=== PATIENT | male | born 1935 | race Two or more races ===

== ENCOUNTER 2018-06-20 17:50 | Emergency (ER) | payer OTHER ==
[~2018-06-20] VITALS: Ht 162.6 cm; Wt 88.0 kg
[2018-06-20] MEDS ORDERED: FORTAMET500 MG (19:04)
[2018-06-20] MEDS ORDERED: NEURONTIN800 MG (19:04)
[2018-06-20] MEDS ORDERED: COUMADIN6 MG (19:05)
[2018-06-20] MEDS ORDERED: CENTRUM SPECIA1 EACH (19:05)
[2018-06-20] MEDS ORDERED: VASOTEC20 M1 (19:06)
[2018-06-20] MEDS ORDERED: CYMBALTA60 MG (19:06)
[2018-06-20] MEDS ORDERED: OMEPRAZOLE20 MG (19:07)
[2018-06-20] MEDS ORDERED: RANITIDINE HCL150 MG (19:07)
[2018-06-20] MEDS ORDERED: LASIX20 MG (19:08)
== END 2018-06-20 21:30 | disposition home or self-care (01) ==
LOC: ER 17:50
DX: S70.01XA Contusion of right hip, initial encounter (principal); S00.03XA Contusion of scalp, initial encounter; S40.011A Contusion of right shoulder, initial encounter; M12.511 Traumatic arthropathy, right shoulder; W01.198A Fall on same level from slipping, tripping and stumbling with subsequent striking against other object, initial encounter; Y93.01 Activity, walking, marching and hiking; Y92.89 Other specified places as the place of occurrence of the external cause; Y99.8 Other external cause status

== ENCOUNTER 2018-09-22 12:51 | Emergency (ER) | payer OTHER ==
[~2018-09-22] VITALS: Ht 165.1 cm; Wt 93.4 kg
[~2018-09-22 12:51] MED LIST: CENTRUM SPECIA1 EACH; COUMADIN6 MG; CYMBALTA60 MG; FORTAMET500 MG; LASIX20 MG; NEURONTIN800 MG; OMEPRAZOLE20 MG; RANITIDINE HCL150 MG; VASOTEC20 M1
== END 2018-09-22 22:54 | disposition home or self-care (01) ==
LOC: ER 12:51
DX: K59.09 Other constipation (principal); R10.84 Generalized abdominal pain

== ENCOUNTER 2019-04-12 07:41 | Outpatient (CLI) | payer OTHER | END 2019-04-12 07:48 | disposition home or self-care (01) | LOC: LAB 07:41 | DX: C18.7 Malignant neoplasm of sigmoid colon (principal); Z85.048 Personal history of other malignant neoplasm of rectum, rectosigmoid junction, and anus; R97.0 Elevated carcinoembryonic antigen [CEA]; D51.1 Vitamin B12 deficiency anemia due to selective vitamin B12 malabsorption with proteinuria; D51.3 Other dietary vitamin B12 deficiency anemia; I10 Essential (primary) hypertension; E08.65 Diabetes mellitus due to underlying condition with hyperglycemia; E78.49 Other hyperlipidemia; D50.8 Other iron deficiency anemias; R97.8 Other abnormal tumor markers ==

== ENCOUNTER 2019-06-10 11:56 | Outpatient (CLI) | payer OTHER | END 2019-06-10 12:01 | disposition home or self-care (01) | LOC: LAB 11:56 | DX: C18.7 Malignant neoplasm of sigmoid colon (principal); Z85.048 Personal history of other malignant neoplasm of rectum, rectosigmoid junction, and anus; R97.0 Elevated carcinoembryonic antigen [CEA]; D51.1 Vitamin B12 deficiency anemia due to selective vitamin B12 malabsorption with proteinuria; D51.3 Other dietary vitamin B12 deficiency anemia; I10 Essential (primary) hypertension; E08.65 Diabetes mellitus due to underlying condition with hyperglycemia; E78.49 Other hyperlipidemia; D50.8 Other iron deficiency anemias; D51.8 Other vitamin B12 deficiency anemias; R97.20 Elevated prostate specific antigen [PSA] ==

== ENCOUNTER 2019-06-25 20:26 | Emergency (ER) | payer OTHER ==
[~2019-06-25] VITALS: Ht 162.6 cm; Wt 92.5 kg
[2019-06-25] MEDS ORDERED: LIRICA (20:45)
[2019-06-25] MEDS ORDERED: TENORMIN50 M1 (20:52)
[2019-06-25] MEDS ORDERED: SIMBALTA PO (20:53)
== END 2019-06-25 23:20 | disposition home or self-care (01) ==
LOC: ER 20:26
DX: S70.02XA Contusion of left hip, initial encounter (principal); S60.222A Contusion of left hand, initial encounter; D72.821 Monocytosis (symptomatic); W01.198A Fall on same level from slipping, tripping and stumbling with subsequent striking against other object, initial encounter; Y93.89 Activity, other specified; Y92.018 Other place in single-family (private) house as the place of occurrence of the external cause; Y99.8 Other external cause status

== ENCOUNTER 2019-06-27 19:49 | Inpatient (IN) | payer OTHER ==
[~2019-06-27] VITALS: Ht 170.2 cm; Wt 102.1 kg
[~2019-06-27 19:49] MED LIST changes: +LIRICA; +SIMBALTA PO; +TENORMIN50 M1
[2019-07-01] MEDS ORDERED: FUROSEMIDE20 MG PO (09:59)
[2019-07-01] MEDS ORDERED: SIMVASTATIN40 MG PO (10:00)
[2019-07-01] MEDS ORDERED: OMEPRAZOLE20 MG PO (10:00)
[2019-07-01] MEDS ORDERED: CENTRUM SPECIA1 EACH PO (10:00)
[2019-07-01] MEDS ORDERED: WARFARIN SODIUM6 MG PO (10:01)
[2019-07-01] MEDS ORDERED: VITAMIN D35000 UNIT PO (10:01)
[2019-07-01] MEDS ORDERED: DULOXETINE HCL60 MG PO (10:01)
[2019-07-01] MEDS ORDERED: ENALAPRIL MALEA20 MG PO (10:01)
[2019-07-01] MEDS ORDERED: METFORMIN HCL500 M1 PO (10:02)
[2019-07-01] MEDS ORDERED: LYRICA50 MG (10:05)
[2019-07-04] MEDS ORDERED: CYMBALTA60 MG PO (14:26)
[2019-07-04] MEDS ORDERED: ENALAPRIL MALEA20 MG PO (14:26)
[2019-07-04] MEDS ORDERED: LOVENOX40 MG/0.4 SUBCUTANEO (14:26)
[2019-07-04] MEDS ORDERED: Lyrica PO (14:26)
[2019-07-04] MEDS ORDERED: ATENOLOL50 MG PO (14:26)
[2019-07-04] MEDS ORDERED: COUMADIN3 MG PO (14:26)
[2019-07-04] MEDS ORDERED: LIPITOR40 MG PO (14:26)
== END 2019-07-04 19:03 | DRG 64 ==
LOC: ER 19:49 → MEDJ 06-28 14:08 → SEC-K 06-28 14:08 → MEDJ 06-28 17:19
PROVIDERS: ADMIT Internal Medicine
PROC: B348ZZZ Ultrasonography of Bilateral Internal Carotid Arteries (ICD-10-PCS; principal; 2019-06-28)
PROC: B345ZZZ Ultrasonography of Bilateral Common Carotid Arteries (ICD-10-PCS; 2019-06-28)
PROC: B030ZZZ Magnetic Resonance Imaging (MRI) of Brain (ICD-10-PCS; 2019-06-28)
PROC: B030Y0Z Magnetic Resonance Imaging (MRI) of Brain using Other Contrast, Unenhanced and Enhanced (ICD-10-PCS; 2019-06-28)
PROC: B246ZZZ Ultrasonography of Right and Left Heart (ICD-10-PCS; 2019-06-28)
PROC: 3E0F7GC Introduction of Other Therapeutic Substance into Respiratory Tract, Via Natural or Artificial Opening (ICD-10-PCS; 2019-06-28)
PROC: 4A12X4Z Monitoring of Cardiac Electrical Activity, External Approach (ICD-10-PCS; 2019-06-29)
PROC: B020ZZZ Computerized Tomography (CT Scan) of Brain (ICD-10-PCS; 2019-07-01)
DX: I63.131 Cerebral infarction due to embolism of right carotid artery (principal); I63.411 Cerebral infarction due to embolism of right middle cerebral artery; I50.23 Acute on chronic systolic (congestive) heart failure; J69.0 Pneumonitis due to inhalation of food and vomit; I69.354 Hemiplegia and hemiparesis following cerebral infarction affecting left non-dominant side; I63.031 Cerebral infarction due to thrombosis of right carotid artery; E11.42 Type 2 diabetes mellitus with diabetic polyneuropathy; I11.0 Hypertensive heart disease with heart failure; I37.1 Nonrheumatic pulmonary valve insufficiency; I34.0 Nonrheumatic mitral (valve) insufficiency; I35.1 Nonrheumatic aortic (valve) insufficiency; I07.1 Rheumatic tricuspid insufficiency; Z79.01 Long term (current) use of anticoagulants; R09.02 Hypoxemia; I48.0 Paroxysmal atrial fibrillation; R29.712 NIHSS score 12
CPT/HCPCS: 70545

== ENCOUNTER → 2019-07-08 | Emergency (ER) | payer OTHER ==
[~2019-07-08] VITALS: Ht 165.1 cm; Wt 74.8 kg
[~2019-07-08] MED LIST changes: +ATENOLOL50 MG PO; +CENTRUM SPECIA1 EACH PO; +COUMADIN3 MG PO; +CYMBALTA60 MG PO; +DULOXETINE HCL60 MG PO; +ENALAPRIL MALEA20 MG PO; +FUROSEMIDE20 MG PO; +LIPITOR40 MG PO; +LOVENOX40 MG/0.4 SUBCUTANEO; +LYRICA50 MG; +Lyrica PO; +METFORMIN HCL500 M1 PO; +OMEPRAZOLE20 MG PO; +SIMVASTATIN40 MG PO; +VITAMIN D35000 UNIT PO; +WARFARIN SODIUM6 MG PO
== END | disposition home or self-care (01) ==
LOC: ER 18:02
DX: I69.398 Other sequelae of cerebral infarction (principal)

== ENCOUNTER 2019-08-14 23:06 | Inpatient (IN) | payer OTHER ==
[~2019-08-14] VITALS: Ht 132.1 cm; Wt 85.3 kg
[2019-08-21] MEDS ORDERED: INTESTINEX680 M1 PO (12:11)
== END 2019-08-21 17:14 | disposition home or self-care (01) | DRG 690 ==
LOC: ER 23:06 → MEDJ 08-15 12:20 → SEC-K 08-15 14:49 → MEDJ 08-15 15:57
PROVIDERS: ADMIT Internal Medicine
DX: N39.0 Urinary tract infection, site not specified (principal); R65.10 Systemic inflammatory response syndrome (SIRS) of non-infectious origin without acute organ dysfunction; I69.854 Hemiplegia and hemiparesis following other cerebrovascular disease affecting left non-dominant side; N17.8 Other acute kidney failure; E86.0 Dehydration; I25.10 Atherosclerotic heart disease of native coronary artery without angina pectoris; I48.0 Paroxysmal atrial fibrillation; E78.49 Other hyperlipidemia; B96.1 Klebsiella pneumoniae [K. pneumoniae] as the cause of diseases classified elsewhere; B96.4 Proteus (mirabilis) (morganii) as the cause of diseases classified elsewhere; Z74.01 Bed confinement status; I13.10 Hypertensive heart and chronic kidney disease without heart failure, with stage 1 through stage 4 chronic kidney disease, or unspecified chronic kidney disease; N18.9 Chronic kidney disease, unspecified; E11.9 Type 2 diabetes mellitus without complications; E11.42 Type 2 diabetes mellitus with diabetic polyneuropathy

== ENCOUNTER 2019-08-27 22:45 | Inpatient (IN) | payer OTHER ==
[~2019-08-27] VITALS: Ht 175.3 cm; Wt 117.9 kg
[~2019-08-27 22:45] MED LIST changes: +INTESTINEX680 M1 PO
[2019-09-13] MEDS ORDERED: ATORVASTATIN CA40 MG PO (15:51)
[2019-09-13] MEDS ORDERED: DULOXETINE HCL60 MG PO (15:52)
[2019-09-19] MEDS ORDERED: ELIQUIS2.5 MG PO (09:47)
[2019-09-19] MEDS ORDERED: TOPROL XL50 M1 PO (09:48)
== END 2019-09-20 19:54 | disposition home or self-care (01) | DRG 853 ==
LOC: ER 22:45 → ICU-2 08-28 16:15 → ICU 08-30 22:46 → MEDJ 09-11 16:37
PROVIDERS: ADMIT Internal Medicine
PROC: B246ZZZ Ultrasonography of Right and Left Heart (ICD-10-PCS; 2019-08-28)
PROC: 0T9B70Z Drainage of Bladder with Drainage Device, Via Natural or Artificial Opening (ICD-10-PCS; 2019-08-28)
PROC: 0DH67UZ Insertion of Feeding Device into Stomach, Via Natural or Artificial Opening (ICD-10-PCS; 2019-09-01)
PROC: 3E0G76Z Introduction of Nutritional Substance into Upper GI, Via Natural or Artificial Opening (ICD-10-PCS; 2019-09-01)
PROC: 0JBG0ZZ Excision of Right Lower Arm Subcutaneous Tissue and Fascia, Open Approach (ICD-10-PCS; principal; 2019-09-02)
PROC: 30233K1 Transfusion of Nonautologous Frozen Plasma into Peripheral Vein, Percutaneous Approach (ICD-10-PCS; 2019-09-02)
PROC: 4A12X4Z Monitoring of Cardiac Electrical Activity, External Approach (ICD-10-PCS; 2019-09-11)
PROC: 30233N1 Transfusion of Nonautologous Red Blood Cells into Peripheral Vein, Percutaneous Approach (ICD-10-PCS; 2019-09-12)
DX: A41.1 Sepsis due to other specified staphylococcus (principal); I50.23 Acute on chronic systolic (congestive) heart failure; R65.21 Severe sepsis with septic shock; J96.01 Acute respiratory failure with hypoxia; I13.0 Hypertensive heart and chronic kidney disease with heart failure and stage 1 through stage 4 chronic kidney disease, or unspecified chronic kidney disease; I69.354 Hemiplegia and hemiparesis following cerebral infarction affecting left non-dominant side; D68.318 Other hemorrhagic disorder due to intrinsic circulating anticoagulants, antibodies, or inhibitors; B37.0 Candidal stomatitis; N17.8 Other acute kidney failure; B37.41 Candidal cystitis and urethritis; E44.0 Moderate protein-calorie malnutrition; S51.821A Laceration with foreign body of right forearm, initial encounter; D69.59 Other secondary thrombocytopenia; E11.22 Type 2 diabetes mellitus with diabetic chronic kidney disease; E11.65 Type 2 diabetes mellitus with hyperglycemia; E11.42 Type 2 diabetes mellitus with diabetic polyneuropathy; E86.0 Dehydration; E87.8 Other disorders of electrolyte and fluid balance, not elsewhere classified; N18.3 Chronic kidney disease, stage 3 (moderate); I08.3 Combined rheumatic disorders of mitral, aortic and tricuspid valves; I25.10 Atherosclerotic heart disease of native coronary artery without angina pectoris; I48.0 Paroxysmal atrial fibrillation; R31.0 Gross hematuria; Z79.4 Long term (current) use of insulin; Z79.01 Long term (current) use of anticoagulants; Z74.01 Bed confinement status

== ENCOUNTER 2019-10-31 22:01 | Inpatient (IN) | payer OTHER ==
[~2019-10-31] VITALS: Ht 177.8 cm; Wt 68.0 kg
[~2019-10-31 22:01] MED LIST changes: +ATORVASTATIN CA40 MG PO; +ELIQUIS2.5 MG PO; +TOPROL XL50 M1 PO
[2019-10-31] MEDS ORDERED: ASPIR 8181 MG (22:58)
[2019-10-31] MEDS ORDERED: LEVAQUIN750 MG (22:59)
[2019-10-31] MEDS ORDERED: INTESTINEX680 M1 (23:00)
[2019-10-31] MEDS ORDERED: AMLODIPINE-OLM1 EAC2 (23:01)
== END 2019-11-14 19:29 | disposition home health service (06) | DRG 177 ==
LOC: ER 22:01 → ICU-2 11-01 09:50 → ICU 11-01 09:50 → MEDJ 11-12 16:48
PROVIDERS: ADMIT Internal Medicine
PROC: 3E0F7GC Introduction of Other Therapeutic Substance into Respiratory Tract, Via Natural or Artificial Opening (ICD-10-PCS; 2019-11-01)
PROC: 0W9930Z Drainage of Right Pleural Cavity with Drainage Device, Percutaneous Approach (ICD-10-PCS; principal; 2019-11-02)
PROC: 8E0ZXY6 Isolation (ICD-10-PCS; 2019-11-04)
PROC: 4A033R1 Measurement of Arterial Saturation, Peripheral, Percutaneous Approach (ICD-10-PCS; 2019-11-11)
PROC: 4A12X4Z Monitoring of Cardiac Electrical Activity, External Approach (ICD-10-PCS; 2019-11-12)
DX: J69.0 Pneumonitis due to inhalation of food and vomit (principal); A41.01 Sepsis due to Methicillin susceptible Staphylococcus aureus; R65.21 Severe sepsis with septic shock; I50.21 Acute systolic (congestive) heart failure; B37.1 Pulmonary candidiasis; J96.01 Acute respiratory failure with hypoxia; T17.898A Other foreign object in other parts of respiratory tract causing other injury, initial encounter; I69.354 Hemiplegia and hemiparesis following cerebral infarction affecting left non-dominant side; J90 Pleural effusion, not elsewhere classified; J98.11 Atelectasis; G93.49 Other encephalopathy; J15.212 Pneumonia due to Methicillin resistant Staphylococcus aureus; D19.0 Benign neoplasm of mesothelial tissue of pleura; G25.3 Myoclonus; I11.0 Hypertensive heart disease with heart failure; I48.0 Paroxysmal atrial fibrillation; I25.10 Atherosclerotic heart disease of native coronary artery without angina pectoris; Z79.01 Long term (current) use of anticoagulants; Z93.1 Gastrostomy status; Z74.01 Bed confinement status